=== PATIENT | male | born 1975 | race Caucasian/White ===

== ENCOUNTER → 2021-12-02 | Outpatient (CLI) | payer OTHER ==
[~2021-12-02] MED LIST: ARNUITY ELLIP100 MCG INH; ASPIR-LOW81 MG PO; AUGMENTIN 875-1 EACH PO; BUPRENORPHIN-N1 EACH SL; COREG 3.125M3.125 MG PO; FLONASE 0.05% N16 GM; GABAPENTIN600 MG PO; IBUPROFEN600 MG PO; IMDUR ER TAB 3030 MG PO; LEVAQUIN500 MG PO; LINZESS290 MCG PO; LIPITOR TAB 2020 MG PO; MIRALAX17 GM PO; NITROSTAT0.3 MG SL; PREDNISONE 10 M10 MG PO; PREDNISONE10 MG PO; PROTONIX40 MG PO; PROVENTIL HFA6.7 GM INH; PROZAC20 MG PO; SINGULAIR10 MG PO; VENTOLIN HFA 66.7 GM INH; VISTARIL25 MG PO; ZANAFLEX4 MG PO; ZANTAC 150 MG150 MG PO
== END ==
LOC: RAD 16:25
DX: R10.9 Unspecified abdominal pain (principal)
CPT/HCPCS: 74018